=== PATIENT | female | born 1995 | race Caucasian/White ===

== ENCOUNTER 2020-12-14 04:35 | Emergency (ER) | payer OTHER ==
[2020-12-14] MEDS ORDERED: Diphtheria,Pertussis(Acell),Tetanus Vaccine 0.5 ML SDV IM ONE (05:43)
[2020-12-14] MEDS ORDERED: Sodium Chloride 0.9% 1,000 ML IV SCH (06:00)
[2020-12-14] MEDS ORDERED: traMADol 50 MG Tab PO ONE (08:02)
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
[2020-12-14] MEDS ORDERED: traMADol 50 MG Tab ONE (08:45)
[2020-12-14] MEDS ORDERED: Cephalexin 500 MG Cap ONE (08:45)
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
== END 2020-12-14 08:56 | disposition home or self-care (01) ==
LOC: LB.ED 04:51
DX: S81.812A Laceration without foreign body, left lower leg, initial encounter (principal); S70.11XA Contusion of right thigh, initial encounter; S70.12XA Contusion of left thigh, initial encounter; S00.83XA Contusion of other part of head, initial encounter; T68.XXXA Hypothermia, initial encounter; Z72.0 Tobacco use; Z23 Encounter for immunization; V48.5XXA Car driver injured in noncollision transport accident in traffic accident, initial encounter
CPT/HCPCS: 12001; 12002; 36415; 70450; 72125; 73560-LT; 80053; 80307; 81025; 82550; 85025; 90471; 90715; 99283; 99284-25; A9270-GY; J7030